=== PATIENT | female | born 1950 | race Caucasian/White ===

== ENCOUNTER → 2017-04-10 | Outpatient (CLI) | payer MEDICARE, MEDICAID ==
[~2017-04-10] MED LIST: AMIT25TA9 PO; ATOR20TA59 PO; BUPR150T8 PO; ESTR0.5T4 PO; FLUO40CA49 PO; GABA-338 PO; HYDR-4074 PO; INSU100V SQ; INSU100V12 SQ; LEVO125T70 PO; MELA10TA2 PO; MELO-267 PO; META-110 PO; MIDO5TAB PO; MONT10TA15 PO; NYST60PO TOP; SITA100T12 PO; ZIPR20CA9 PO
--- NOTE | 2017-04-10 13:15 | DI ---
Indication: ITS.REASON: N18.5 CHRONIC KIDNEY DISEASE, STAGE 5 PROCEDURE: US RENAL: Encounter: Initial Comparison: None Technique: Grayscale and color Doppler sonographic imaging of both kidneys was performed. FINDINGS: Both kidneys are present with moderate cortical thinning and increased echogenicity. No evidence for collecting system dilatation, contour deforming mass, nephrolithiasis, or abnormal perinephric fluid collection. The right kidney measures 10.2 cm in length, and the left kidney measures 10.8 cm in length. IMPRESSION: No hydronephrosis. Renal cortical loss consistent with the history of medical renal disease. .
== END ==
LOC: IMA 11:06
PROVIDERS: ATTEND Specialist
DX: N18.5 Chronic kidney disease, stage 5 (principal)